=== PATIENT | male | born 1975 | race Two or more races ===

== ENCOUNTER 2024-09-17 15:01 | Outpatient (CLI) | payer OTHER | END 2024-09-17 15:03 | disposition home or self-care (01) | LOC: SONOGRAMA 15:01 | PROVIDERS: ATTEND Pathology Anatomic Pathology & Clinical Pathology | DX: D34 Benign neoplasm of thyroid gland (principal); D44.0 Neoplasm of uncertain behavior of thyroid gland; E06.3 Autoimmune thyroiditis; E07.89 Other specified disorders of thyroid; E04.2 Nontoxic multinodular goiter ==

== ENCOUNTER 2025-02-15 10:56 | Outpatient (CLI) | payer OTHER | END 2025-02-15 10:59 | disposition home or self-care (01) | LOC: SONOGRAMA 10:56 | PROVIDERS: ATTEND Pathology Anatomic Pathology & Clinical Pathology | DX: D44.0 Neoplasm of uncertain behavior of thyroid gland (principal); E04.2 Nontoxic multinodular goiter ==

== ENCOUNTER 2025-04-22 09:25 | Outpatient (CLI) | payer OTHER | END 2025-04-22 09:27 | disposition home or self-care (01) | LOC: SONOGRAMA 09:25 | PROVIDERS: ATTEND Pathology Anatomic Pathology & Clinical Pathology | DX: R59.0 Localized enlarged lymph nodes (principal); D17.0 Benign lipomatous neoplasm of skin and subcutaneous tissue of head, face and neck; C73 Malignant neoplasm of thyroid gland ==

== ENCOUNTER 2025-06-24 10:00 | Inpatient (IN) | payer OTHER ==
[2025-06-21 08:19] VITALS: BP 119/80
[2025-06-21 08:46] LABS: BASO % 0.3 % (0.1-1.2); EOS # 0.15 (0.04-0.54); EOS % 2.5 % (0.7-7.0); LYMPH # 2.49 (1.18-3.74); LYMPH % 41.8 % (19.3-53.1); MEAN PLATELET VOLUME 9.90 fl (9.4-12.4); MONO # 0.63 (0.24-0.82); MONO % 10.6 % (4.7-12.5); NEUT # 2.66 (1.56-6.13); NEUT % 44.6 % (34.0-71.1); RED CELL DISTRIBUTION WIDTH 13.0 % (11.6-14.4)
[2025-06-21 08:48] LABS: URINE APPEARANCE Clear; URINE BILIRRUBIN Negative (NEGATIVE); URINE BLOOD Negative; URINE COLOR Yellow; URINE GLUCOSE Negative (NEGATIVE); URINE KETONE Negative (NEGATIVE); URINE LEUKOCYTE Trace; URINE NITRATE Negative; URINE PROTEIN Negative (NEGATIVE); URINE UROBILINOGEN 0.2 E.U./dl
[2025-06-21 08:53] LABS: URINE BACTERIA 45.5 uL (0.0-1933); URINE EPITHELIAL CELLS 9.6 uL (0.0-38.8); URINE WBC 18.0 uL (0.0-23.2)
[2025-06-21 09:01] LABS: URINE CAST 0.43 uL (0.0-1.40); URINE RBC 0.8 uL (0.0-20.8)
[2025-06-21 09:28] LABS: INR 1.01
[2025-06-21 09:36] LABS: ALT/SGPT 29.0 U/L (12-78); AST/SGOT 26.0 U/L (15-37); BILIRUBIN TOTAL 0.6 mg/dL (0.3-1.2); BUN CREA RATIO 21.0 (7.0-25.0); CREATININE SERUM 0.82 mg/dL (0.70-1.30); GFR 99.86; GLOBULINA 3.1 G/DL (2.4-3.5); GLUCOSE FASTING 110.0 mg/dL (65-100); OSMOLALITY SERUM 285.0 MOSM/KG (275-295)
[~2025-06-24] VITALS: Ht 190.5 cm; Wt 98.0 kg
[~2025-06-24 10:00] MED LIST: ALLOPURINOL 300 MG; ATORVASTATIN CA20 MG; Calcium Carbonate 1 TAB TABLET PO SCH; ENALAPRILAT DIHYDRATE 1.25 MG/ML VIAL IV PRN; ONDANSETRON HCL 2 MG/ML VIAL IV PRN; ZESTORETIC 10-1 EACH
[2025-06-24] MEDS ORDERED: DEXAMETHASONE SODIUM PHOSPHATE 4 MG/ML VIAL ONE ×2 (10:35→10:59)
[2025-06-24] MEDS ORDERED: TRAMADOL HCL 50 MG TABLET PO SCH (17:00)
[2025-06-24] MEDS ORDERED: ACETAMINOPHEN 500 MG GEL..CAP PO SCH (17:00)
[2025-06-24] MEDS ORDERED: CYCLOBENZAPRINE HCL 5 MG TABLET PO SCH (17:00)
[2025-06-24] MEDS ORDERED: LIDOCAINE HCL 30 ML,MAG HYDROX/ALUMINUM HYD/SIMETH 30 ML,DIPHENHYDRAMINE HCL 75 MG MM SCH (17:00)
[2025-06-24 17:10] VITALS: BP 125/74; O2SAT 97
[2025-06-24] MEDS ORDERED: PANTOPRAZOLE SODIUM 40 MG/VIAL VIAL IV PUSH SCH (21:00)
[2025-06-25 01:12] VITALS: BP 103/64; O2SAT 97
[2025-06-25 08:31] VITALS: BP 129/88; O2SAT 98
[2025-06-25] MEDS ORDERED: HYDROCHLOROTHIAZIDE 12.5 MG CAPSULE PO SCH (09:00)
[2025-06-25] MEDS ORDERED: LISINOPRIL 10 MG TABLET PO SCH (09:00)
[2025-06-25] MEDS ORDERED: MAG HYDROX/ALUMINUM HYD/SIMETH 30 ML BLIST.PACK PO ONE (15:40)
[2025-06-25 16:00] VITALS: BP 128/78; O2SAT 97
[2025-06-25] MEDS ORDERED: CALCITRIOL 0.5 MCG CAPSULE PO SCH (17:00)
[2025-06-26] MEDS ORDERED: LEVOTHYROXINE SODIUM 150 MCG TABLET PO SCH (07:00)
== END 2025-06-25 21:10 | disposition home or self-care (01) | DRG 627 ==
LOC: CIR.AMB 10:00 → O/R 13:28 → SURG 13:28 → CIR.AMB 15:04 → SURG 15:44
PROVIDERS: ADMIT Surgery; ATTEND Surgery
PROC: 0GSP0ZZ Reposition Left Inferior Parathyroid Gland, Open Approach (ICD-10-PCS; 2025-06-24)
PROC: 0GTH0ZZ Resection of Right Thyroid Gland Lobe, Open Approach (ICD-10-PCS; principal; 2025-06-24 07:00)
DX: C73 Malignant neoplasm of thyroid gland (principal); E04.2 Nontoxic multinodular goiter